=== PATIENT | male | born 1960 ===

== ENCOUNTER 2017-01-15 16:31 | Emergency (ER) | payer MEDICARE ==
[2017-01-15 16:42] VITALS: BP 153/75; PULSE 88; TEMP 98.4
--- NOTE | 2017-01-15 17:10 | ED PDOC ---
HPI: SOB/CHF/COPD Time Seen by Provider: 01/15/17 17:07 Chief Complaint (Nursing): Shortness Of Breath Chief Complaint (Provider): Shortness of Breath History Per: Patient History/Exam Limitations: no limitations Onset/Duration Of Symptoms: Hrs (x1.5) Current Symptoms Are (Timing): Better Initiating Event: Other (exposure to Raid aerosol insecticide) Associated Symptoms: denies: Chest Pain, Dizziness, Light-headedness Additional Complaint(s): Chago Lockhart is a 56 year old male, with a past medical history inclusive of HTN, hyperlipidemia and type II diabetes, who presents to the ED on 01/15/17 for evaluation s/p episode of acute shortness of breath that he had experienced after being exposed to aerosol Raid insecticide while he was spraying the inside of his cabinets at home approximately 1.5 hours prior to arrival. Patient reports that episode lasted for approximately 25 minutes and that he is feeling better upon initial ED evaluation; denying any chest pain, dizziness or lightheadedness. PMD: Saad Past Medical History Reviewed: Historical Data, Nursing Documentation, Vital Signs Vital Signs: Last Vital Signs Temp 98.4 F 01/15/17 16:38 Pulse 88 01/15/17 16:38 Resp 18 01/15/17 17:18 BP 153/75 H 01/15/17 16:38 Pulse Ox 100 01/15/17 19:08 - Medical History PMH: Diabetes (type II), HTN, Hyperlipidemia - Surgical History Surgical History: No Surg Hx - Family History Family History: States: Unknown Family Hx - Living Arrangements Living Arrangements: With Family - Social History Ex-Smoker (has not smoked in the last 12 months): Yes Alcohol: None Drugs: Denies - Home Medications Home Medications: Ambulatory Orders Medication Instructions Recorded Amoxicillin/Clavulanate [Augmentin 1 tab PO BID #20 tab 09/01/16 875 MG-125 MG] Methylprednisolone [Medrol Dose 4 mg PO DAILY #1 packet 09/01/16 Pack (21 tabs)] - Allergies Allergies/Adverse Reactions: Allergies Allergy/AdvReac Type Severity Reaction Status Date / Time No Known Allergies Allergy Verified 01/15/17 16:38 Review of Systems Cardiovascular: Negative for: Chest Pain, Light Headedness Respiratory: Positive for: Shortness of Breath (has improved upon arrival in ED) Neurological: Negative for: Dizziness Physical Exam - Reviewed Nursing Documentation Reviewed: Yes Vital Signs Reviewed: Yes - Physical Exam Appears: Positive for: Non-toxic, No Acute Distress Head Exam: Positive for: ATRAUMATIC, NORMOCEPHALIC Skin: Positive for: Normal Color, Warm, Dry Eye Exam: Positive for: Normal appearance ENT: Positive for: Normal ENT Inspection, Pharynx Is (airway clear/patent) Cardiovascular/Chest: Positive for: Regular Rate, Rhythm. Negative for: Murmur Respiratory: Positive for: Normal Breath Sounds. Negative for: Respiratory Distress (speaking in full sentences) Extremity: Positive for: Normal ROM (moving all extremities well) Neurologic/Psych: Positive for: Alert, Oriented - ECG Interpretation Of ECG: NSR @ 89, nonspecific ST and T wave abnormality. O2 Sat by Pulse Oximetry: 100 (RA) Pulse Ox Interpretation: Normal - Radiology X-Ray: Interpreted by Me, Viewed By Me X-Ray Interpretation: No Acute Disease Medical Decision Making Medical Decision Makin:07 Initial Impression: shortness of breath in context of aerosol Raid exposure Initial Plan: * CXR * Glucose/Blood/POC * Reevaluation 15:44 CXR shows no acute disease, as reviewed by this provider. Pending accucheck. 19:06 Accucheck is 337, with patient reporting that it is likely secondary to his having eaten a lot of rice this afternoon. Accucheck is normally within the 130' s. Upon provider reevaluation patient is feeling better, is medically stable, and requires no further treatment in the ED at this time. Patient will be discharged home. Counseling was provided and all questions were answered regarding diagnosis and need for follow up with his PMD. There is agreement to discharge plan. Return if symptoms persist or worsen. Clinical Impression: inhalation of noxious substance Scribe Attestation: Documented by Latisha Meneses, acting as a scribe for Kecia Rowell MD. Provider Scribe Attestation: All medical record entries made by the Scribe were at my direction and personally dictated by me. I have reviewed the chart and agree that the record accurately reflects my personal performance of the history, physical exam, medical decision making, and the department course for this patient. I have also personally directed, reviewed, and agree with the discharge instructions and disposition. Disposition - Clinical Impression Clinical Impression: Inhalation of noxious substance - Patient ED Disposition Is Patient to be Admitted: No Counseled Patient/Family Regarding: Studies Performed, Diagnosis, Need For Followup - Disposition Referrals: Janak Nash MD [Staff Provider] - Disposition: Routine/Home Disposition Time: 19:06 Condition: STABLE Instructions: Smoke Inhalation (ED)
[2017-01-15 17:19] VITALS: RESP 18
[2017-01-15 17:30] VITALS: O2SAT 100
--- NOTE | 2017-01-16 08:42 | RAD ---
HISTORY: Insect aside inhalation. COMPARISON: No prior. TECHNIQUE: Chest PA and lateral FINDINGS: LUNGS: No active pulmonary disease. PLEURA: No significant pleural effusion identified. No pneumothorax apparent. CARDIOVASCULAR: Normal. OSSEOUS STRUCTURES: No significant abnormalities. VISUALIZED UPPER ABDOMEN: Normal. OTHER FINDINGS: None. IMPRESSION: No active disease.
== END 2017-01-15 19:34 | disposition home or self-care (01) ==
LOC: H.ER 16:31
DX: J70.5 Respiratory conditions due to smoke inhalation (principal); E11.9 Type 2 diabetes mellitus without complications; E78.5 Hyperlipidemia, unspecified; I10 Essential (primary) hypertension

== ENCOUNTER 2017-02-16 11:55 | Emergency (ER) | payer MEDICARE ==
[2017-02-16 11:59] VITALS: BP 132/75; PULSE 88; RESP 20; TEMP 97.7; O2SAT 99; BMI 32.5
--- NOTE | 2017-02-16 13:08 | ED PDOC ---
HPI: Back Time Seen by Provider: 02/16/17 12:14 Chief Complaint (Nursing): Back Pain History Per: Patient History/Exam Limitations: no limitations Onset/Duration Of Symptoms: Days (2) Current Symptoms Are (Timing): Still Present Quality Of Discomfort: Aching Severity: Moderate Previous Symptoms: Back Pain Associated Symptoms: Other (LE numbness) Exacerbating Factor(s): Movement Additional Complaint(s): Patient presents c/o L sided mid-low back pain, which started last night after he was bending down cleaning his kitchen drawers and then stood up and felt the pain, which is worse with movement, took 2 tabs of OTC advil today with no improvement of pain, is associated with numbness to the legs. Reports prior h/o back pain and injury with herniated disc to his lower back. Denies any fever, chills, trauma, fall, urinary symptoms, bowel / bladder incontinence, abdominal pain, or any other complaints. PMD Janak Nash Past Medical History Vital Signs: Last Vital Signs Temp 97.7 F 02/16/17 11:58 Pulse 88 02/16/17 11:58 Resp 20 02/16/17 11:58 BP 132/75 02/16/17 11:58 Pulse Ox 99 02/16/17 11:58 - Medical History PMH: Diabetes (type II), HTN, Hyperlipidemia - Family History Family History: States: Unknown Family Hx - Home Medications Home Medications: Ambulatory Orders Medication Instructions Recorded Amoxicillin/Clavulanate [Augmentin 1 tab PO BID #20 tab 09/01/16 875 MG-125 MG] Methylprednisolone [Medrol Dose 4 mg PO DAILY #1 packet 09/01/16 Pack (21 tabs)] Cyclobenzaprine [Cyclobenzaprine 10 mg PO TID PRN #15 tab 02/16/17 HCl] Naproxen 500 mg PO BID #30 tab 02/16/17 traMADol [Ultram] 50 mg PO TID #15 tab 02/16/17 - Allergies Allergies/Adverse Reactions: Allergies Allergy/AdvReac Type Severity Reaction Status Date / Time No Known Allergies Allergy Verified 02/16/17 12:06 Review of Systems Constitutional: Negative for: Fever, Chills, Weakness Cardiovascular: Negative for: Chest Pain, Palpitations, Edema Respiratory: Negative for: Cough, Shortness of Breath, Wheezing Gastrointestinal: Negative for: Nausea, Vomiting, Abdominal Pain, Constipation Genitourinary Male: Negative for: Dysuria, Frequency, Incontinence, Hematuria Musculoskeletal: Positive for: Back Pain (chronic back pain). Negative for: Neck Pain Skin: Negative for: Rash, Lesions, Jaundice Neurological: Positive for: Numbness (b/l LE). Negative for: Weakness, Incoordination, Confusion, Seizures, Headache, Dizziness Physical Exam - Reviewed Nursing Documentation Reviewed: Yes Vital Signs Reviewed: Yes - Physical Exam Appears: Positive for: Well, Non-toxic, In Acute Distress (moderate painful distress) Head Exam: Positive for: ATRAUMATIC, NORMAL INSPECTION, NORMOCEPHALIC Skin: Positive for: Normal Color, Warm, Dry Neck: Positive for: Normal, Painless ROM, Supple, Trachea Midline. Negative for : Decreased ROM Cardiovascular/Chest: Positive for: Regular Rate, Rhythm, Chest Non Tender. Negative for: Edema, JVD, Murmur Respiratory: Positive for: Normal Breath Sounds. Negative for: Accessory Muscle Use, Crackles, Rales, Rhonchi, Wheezing, Respiratory Distress Gastrointestinal/Abdominal: Positive for: Normal Exam, Bowel Sounds, Soft, Tenderness. Negative for: Organomegaly, Mass, Distended, Guarding, Rebound Back: Positive for: Normal Inspection, Muscle Spasm (to the L mid and lower back ), Other (+ R paralumbar tenderness). Negative for: L CVA Tenderness, R CVA Tenderness, Vertebral Tenderness Extremity: Positive for: Normal ROM. Negative for: Tenderness, Deformity, Swelling Neurologic/Psych: Positive for: Alert, milling/polishing operator II-XII, Oriented, Motor/Sensory Deficits - ECG O2 Sat by Pulse Oximetry: 99 Medical Decision Making Medical Decision Makin yo M with prior h/o of back pain, presents with R mid-low back pain after bending down to clean his kitchen drawers then standing up afterwards. Given toradol IM, ultram PO and flexeril PO. On re-evaluation, patient remains awake, alert and oriented x3, in no acute distress. States that he feels well and has no additional complaints at this time. Patient able to stand up and get out of the bed, was able to ambulate in the ER with a normal gait. States that he feel comfortable going home. Based on history and exam, plan will be for outpatient f/u with pmd. Rx provided. Patient verbalize understanding of the need for further outpatient care and follow up treatment. The patient was given the opportunity to ask any questions. Follow up with pmd in 2 days without fail for re-evaluation. Take medications as prescribed. Return to the ER at any time for any new or worsening symptoms. Disposition - Clinical Impression Clinical Impression: Back pain - Disposition Disposition: Routine/Home Disposition Time: 14:15 Condition: STABLE Additional Instructions: Follow up with pmd in 2 days without fail for re-evaluation. Take medication as prescribed. Return to the ER at any time for any new or worsening symptoms Prescriptions: Cyclobenzaprine [Cyclobenzaprine HCl] 10 mg PO TID PRN #15 tab PRN Reason: Muscle Spasm Naproxen 500 mg PO BID #30 tab traMADol [Ultram] 50 mg PO TID #15 tab Instructions: Back Pain (ED) Forms: [facility] ED School/Work Excuse Print Language: ESTONIAN
== END 2017-02-16 14:42 | disposition home or self-care (01) ==
LOC: H.ER 11:55
DX: M54.9 Dorsalgia, unspecified (principal)
CPT/HCPCS: 96372; 99282; J1885